=== PATIENT | female | born 1950 | race Two or more races ===

== ENCOUNTER 2020-12-09 08:00 | Day surgery (SDC) | payer OTHER | END 2020-12-09 12:30 | disposition home or self-care (01) | LOC: AMB-ENDOS 08:00 | PROVIDERS: ATTEND Surgery | DX: D17.5 Benign lipomatous neoplasm of intra-abdominal organs (principal) ==

== ENCOUNTER 2021-07-20 09:15 | Inpatient (IN) | payer OTHER ==
[~2021-07-20] VITALS: Ht 162.6 cm; Wt 83.5 kg
[2021-07-20] MEDS ORDERED: GLIPIZIDE XL10 MG PO (10:55)
[2021-07-20] MEDS ORDERED: TOPROL XL25 M1 PO (10:55)
[2021-07-20] MEDS ORDERED: ATACAND HCT 321 EAC1 PO (10:56)
[2021-07-20] MEDS ORDERED: ALDACTONE25 MG PO (10:56)
[2021-07-20] MEDS ORDERED: JANUMET XR 50-1 EAC1 PO (10:56)
[2021-07-23] MEDS ORDERED: ATORVASTATIN CA20 MG (08:37)
[2021-07-23] MEDS ORDERED: LOPRESSOR25 MG (08:37)
[2021-07-23] MEDS ORDERED: OMEGA-3 ACID ETH1 GM (08:37)
[2021-07-23] MEDS ORDERED: LANSOPRAZOLE30 MG (08:38)
[2021-07-23] MEDS ORDERED: CELECOXIB200 MG (08:38)
[2021-07-26] MEDS ORDERED: LOPRESSOR25 MG (09:29)
== END 2021-07-26 19:15 | disposition home or self-care (01) | DRG 331 ==
LOC: SURG 07-23 05:50 → O/R 07-23 05:50 → SURH 07-23 07:00 → SURG 07-23 10:57
PROVIDERS: ADMIT Surgery; ATTEND Surgery
PROC: 0DTN0ZZ Resection of Sigmoid Colon, Open Approach (ICD-10-PCS; 2021-07-23)
PROC: 0DJD8ZZ Inspection of Lower Intestinal Tract, Via Natural or Artificial Opening Endoscopic (ICD-10-PCS; 2021-07-23)
PROC: 3E0F7SF Introduction of Other Gas into Respiratory Tract, Via Natural or Artificial Opening (ICD-10-PCS; 2021-07-23)
PROC: 0DTP0ZZ Resection of Rectum, Open Approach (ICD-10-PCS; principal; 2021-07-23 07:00)
DX: D12.5 Benign neoplasm of sigmoid colon (principal); R10.9 Unspecified abdominal pain; Z20.822 Contact with and (suspected) exposure to COVID-19